=== PATIENT | female | born 1990 ===

== ENCOUNTER 2022-07-11 08:49 | Emergency (ER) | payer MEDICARE, MEDICAID ==
[2022-07-11 09:41] LABS: CHLORIDE,CL 106 mEq/L (98-106); ESTIMATED GFR 117 mL/min (>=60); SODIUM,NA 141 mEq/L (136-145)
== END 2022-07-11 10:47 | disposition home or self-care (01) ==
LOC: CC.ED 08:49
DX: R07.81 Pleurodynia (principal); I49.8 Other specified cardiac arrhythmias; Z87.891 Personal history of nicotine dependence; Z88.4 Allergy status to anesthetic agent; Z88.8 Allergy status to other drugs, medicaments and biological substances
CPT/HCPCS: 36415; 71046; 80053; 84484; 85025; 85379; 86140; 93005; 93010; 99284